=== PATIENT | male | born 1960 | race American Indian/Alaskan Native ===

== ENCOUNTER 2021-04-11 01:09 | Emergency (ER) | payer OTHER ==
[2021-04-11 01:39] VITALS: BP 143/95
[2021-04-11 02:05] LABS: Eosinophils # (Auto) 0.1 K/mm3 (0.0-0.4); Hematocrit 40.5 % (35.5-45.6); Hemoglobin 13.9 gm/dl (11.8-15.2); Lymphocytes % (Auto) 41.9 % (13.4-35.0); Mean Corpuscular HGB Conc 34 % (32-34); Mean Corpuscular Volume 87 fl (84-94); Monocytes # (Auto) 0.4 K/mm3 (0.0-0.8); Monocytes % (Auto) 7.9 % (0.0-7.3); Platelet Count 346 K/mm3 (140-440); Red Blood Count 4.68 M/mm3 (3.65-5.03); Red Cell Distribution Width 13.6 % (13.2-15.2)
[2021-04-11 02:27] LABS: BUN/Creatinine Ratio 17; Blood Urea Nitrogen 15 mg/dL (9-20); Calcium 9.2 mg/dL (8.4-10.2); Hemolysis Index 5
--- NOTE | 2021-04-11 19:45 | Electrocardiograph Report ---
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
== END 2021-04-11 02:00 | disposition left against medical advice (07) ==
LOC: ED 01:09
DX: F22 Delusional disorders (principal); F03.90 Unspecified dementia, unspecified severity, without behavioral disturbance, psychotic disturbance, mood disturbance, and anxiety; Z53.21 Procedure and treatment not carried out due to patient leaving prior to being seen by health care provider
CPT/HCPCS: 36415; 80048; 80320; 85025; 93005; G0480